=== PATIENT | female | born 1980 | race Caucasian/White ===

== ENCOUNTER 2018-08-05 17:26 | Emergency (ER) | payer OTHER ==
[2018-08-05] MEDS: ONDANSETRON 4 MG INJ IV (20:38)
[2018-08-05] MEDS: morphine 4 MG/ML VIAL IV (20:38)
[2018-08-05] MEDS: SOD CHLORIDE 0.9% 1,000 ML IV (20:39)
[2018-08-05 20:48] LABS: ADD UMIC YES; UR ASCORBIC ACID NEGATIVE (NEGATIVE); UR BACTERIA FEW /HPF (NONE SEEN); UR BILIRUBIN (Dip) NEGATIVE (NEGATIVE); UR BLOOD (Dip) NEGATIVE (NEGATIVE); UR CLARITY SLIGHTLY CLOUDY (CLEAR); UR COLOR YELLOW (YELLOW); UR GLUCOSE (Dip) NEGATIVE (NEGATIVE); UR KETONES (Dip) NEGATIVE (NEGATIVE); UR LEUKOCYTE ESTERASE (Dip) TRACE Leu/ul (NEGATIVE); UR NITRITE (Dip) NEGATIVE (NEGATIVE); UR RBC 6 /HPF (0-5); UR SPECIFIC GRAVITY (Dip) 1.009 (1.003-1.030); UR SQUAMOUS EPITHELIAL CELL FEW /HPF (FEW); UR TOTAL PROTEIN (Dip) NEGATIVE (NEGATIVE); UR UROBILINOGEN (Dip) NEGATIVE (NEGATIVE); UR WBC 2 /HPF (0-5)
[2018-08-05 20:53] LABS: ADD MAN DIFF? NO
[2018-08-05 20:54] LABS: WHITE BLOOD COUNT 9.3 10^3/ul (4.8-10.8)
[2018-08-05 20:54] LABS: BASOPHILS % 0.2 % (0.0-2.0); EOSINOPHILS # 0.1 10^3/ul (0.0-0.5); HEMATOCRIT 41.5 % (37.0-47.0); HEMOGLOBIN 14.3 g/dl (12.0-16.0); LYMPHOCYTES # 2.4 10^3/ul (0.8-2.9); LYMPHOCYTES % 25.6 % (15.0-51.0); MEAN CORPUSCULAR HEMOGLOBIN 30.8 pg (29.0-33.0); MEAN CORPUSCULAR HGB CONC 34.5 g/dl (32.0-37.0); MEAN CORPUSCULAR VOLUME 89.2 fl (82.0-101.0); MEAN PLATELET VOLUME 9.8 fl (7.4-10.4); MONOCYTE # 0.3 10^3/ul (0.3-0.9); MONOCYTES % 3.6 % (0.0-11.0); NEUTROPHIL # 6.5 10^3/ul (1.6-7.5); NEUTROPHILS % 69.4 % (39.0-77.0); PLATELET COUNT 341 10^3/UL (140-415); RED BLOOD COUNT 4.65 10^6/ul (4.20-5.40); RED CELL DISTRIBUTION WIDTH 11.9 % (11.5-14.5)
[2018-08-05 21:22] LABS: ALANINE AMINOTRANSFERASE 27 IU/L (13-69); ALBUMIN 4.4 g/dl (3.3-4.9); ALBUMIN/GLOBULIN RATIO 1.12; ALKALINE PHOSPHATASE 75 IU/L (42-121); ANION GAP 12 (8-16); ASPARTATE AMINO TRANSFERASE 28 IU/L (15-46); BILIRUBIN,INDIRECT 0.6 mg/dl (0-1.1); BILIRUBIN,TOTAL 0.6 mg/dl (0.2-1.3); BLOOD UREA NITROGEN 7 mg/dl (7-20); CALCIUM 9.5 mg/dl (8.4-10.2); CARBON DIOXIDE 27 mmol/L (21-31); CHLORIDE 106 mmol/L (97-110); CREATININE 0.77 mg/dl (0.44-1.00); GLUCOSE 140 mg/dl (70-220); LIPASE 54 U/L (23-300); POTASSIUM 3.6 mmol/L (3.5-5.1); SODIUM 141 mmol/L (135-144); TOTAL PROTEIN 8.3 g/dl (6.1-8.1)
== END 2018-08-06 02:53 | disposition home or self-care (01) ==
LOC: FTE 08-06 02:53
DX: D25.9 Leiomyoma of uterus, unspecified (principal); J45.909 Unspecified asthma, uncomplicated
CPT/HCPCS: 74176; 76830; 76856; 80053; 81001; 83690; 84703; 85025; 96374; 96375; 99285-25

== ENCOUNTER 2018-11-09 05:50 | Inpatient (IN) | payer OTHER ==
[2018-11-09] MEDS ORDERED: ALBUTEROL 0.083% (NEB) 2.5 MG/3 ML AMP HHN (06:56)
[2018-11-09] MEDS ORDERED: ALBUTEROL/IPRATROPIUM (NEB) 3 ML AMP HHN (07:01)
[2018-11-09] MEDS ORDERED: ALBUTEROL HFA 8 GM INHALER (07:09)
[2018-11-09] MEDS: ALBUTEROL HFA 8 GM INHALER INH (07:15)
[2018-11-09] MEDS ORDERED: ROCURONIUM 50 MG INJ (07:19)
[2018-11-09] MEDS ORDERED: FENTAnyl 50 MCG/ML VIAL ×2 (07:19)
[2018-11-09] MEDS ORDERED: MIDAZOLAM 1 MG/ML 2 ML INJ (07:19)
[2018-11-09] MEDS ORDERED: LIDOCAINE 2% (SDV) 5 ML INJ (07:19)
[2018-11-09] MEDS ORDERED: PROPOFOL 40 ML (07:19)
[2018-11-09] MEDS ORDERED: CEFAZOLIN 1 GM INJ (07:19)
[2018-11-09] MEDS ORDERED: DEXAMETHASONE 4 MG/ML 1 ML INJ (07:20)
[2018-11-09] MEDS ORDERED: FAMOTIDINE 20 MG INJ (07:20)
[2018-11-09] MEDS ORDERED: ONDANSETRON 4 MG INJ (07:20)
[2018-11-09] MEDS: METHYLENE BLUE 1% 10 ML INJ (07:28)
[2018-11-09] MEDS ORDERED: HYDROmorphONE 1 MG/5 ML IV SYRINGE IV (07:30)
[2018-11-09] MEDS ORDERED: EPHEDrine SULFATE 50 MG/5 ML SYG IV (07:30)
[2018-11-09] MEDS ORDERED: DIPHENHYDRAMINE 50 MG INJ IV (07:30)
[2018-11-09] MEDS ORDERED: FENTAnyl 50 MCG/ML VIAL IV ×2 (07:30)
[2018-11-09] MEDS ORDERED: LABETALOL HCL 20MG INJ IV (07:30)
[2018-11-09] MEDS ORDERED: ESMOLOL 10 ML (07:56)
[2018-11-09] MEDS ORDERED: SUGAMMADEX SODIUM 200 MG/2 ML VIAL IV (08:00)
[2018-11-09] MEDS: VASOPRESSIN 20 UNITS INJ (08:01)
[2018-11-09] MEDS ORDERED: PHENYLephrine (100 MCG/ML) 5ML SYG (08:12)
[2018-11-09] MEDS ORDERED: NALOXONE (0.4 MG/ML) INJ IV (09:30)
[2018-11-09] MEDS ORDERED: HYDROmorphONE 0.2 MG/ML PCA IV (09:30)
[2018-11-09] MEDS: MEPERIDINE 25 MG INJ IV (09:31)
[2018-11-09] MEDS: ONDANSETRON 4 MG INJ IV (09:33)
[2018-11-09] MEDS: HYDROmorphONE 1 MG/5 ML IV SYRINGE IV ×2 (09:34→10:11)
[2018-11-09] MEDS: ALBUTEROL 0.083% (NEB) 2.5 MG/3 ML AMP HHN (09:39)
[2018-11-09] MEDS: HYDROmorphONE 2 MG/ML SYG IV ×2 (14:32→19:22)
[2018-11-10] MEDS: HYDROmorphONE 2 MG/ML SYG IV ×4 (00:20→17:09)
[2018-11-10 05:09] LABS: ADD MAN DIFF? NO
[2018-11-10 05:20] LABS: WHITE BLOOD COUNT 18.4 10^3/ul (4.8-10.8)
[2018-11-10 05:20] LABS: BASOPHILS % 0.1 % (0.0-2.0); HEMATOCRIT 31.7 % (37.0-47.0); HEMOGLOBIN 10.9 g/dl (12.0-16.0); LYMPHOCYTES % 5.6 % (15.0-51.0); MEAN CORPUSCULAR HEMOGLOBIN 31.1 pg (29.0-33.0); MEAN CORPUSCULAR HGB CONC 34.4 g/dl (32.0-37.0); MEAN CORPUSCULAR VOLUME 90.6 fl (82.0-101.0); MEAN PLATELET VOLUME 9.8 fl (7.4-10.4); MONOCYTE # 1.1 10^3/ul (0.3-0.9); MONOCYTES % 5.9 % (0.0-11.0); NEUTROPHIL # 16.2 10^3/ul (1.6-7.5); NEUTROPHILS % 87.9 % (39.0-77.0); PLATELET COUNT 301 10^3/UL (140-415)
[2018-11-10 05:29] LABS: ALANINE AMINOTRANSFERASE 48 IU/L (13-69); ALBUMIN 3.3 g/dl (3.3-4.9); ALBUMIN/GLOBULIN RATIO 1.17; ALKALINE PHOSPHATASE 65 IU/L (42-121); ANION GAP 6 (5-13); ASPARTATE AMINO TRANSFERASE 45 IU/L (15-46); BILIRUBIN,INDIRECT 0.7 mg/dl (0-1.1); BILIRUBIN,TOTAL 0.7 mg/dl (0.2-1.3); BLOOD UREA NITROGEN 8 mg/dl (7-20); CALCIUM 8.3 mg/dl (8.4-10.2); CARBON DIOXIDE 27 mmol/L (21-31); CHLORIDE 105 mmol/L (97-110); CREATININE 0.58 mg/dl (0.44-1.00); Estimated GFR > 60 mL/min (>60); GLUCOSE 120 mg/dl (70-220); POTASSIUM 4.3 mmol/L (3.5-5.1); SODIUM 138 mmol/L (135-144); TOTAL PROTEIN 6.1 g/dl (6.1-8.1)
[2018-11-10] MEDS: MAGNESIUM HYDROXIDE 30ML CUP PO ×2 (06:14→17:00)
[2018-11-10] MEDS: BISACODYL 10 MG SUPP PR ×2 (06:14→17:00)
[2018-11-10] MEDS ORDERED: ONDANSETRON 4 MG INJ (08:25)
[2018-11-10] MEDS ORDERED: ONDANSETRON 4 MG INJ IV (08:30)
[2018-11-11] MEDS: IBUPROFEN 800 MG TAB PO ×3 (03:53→17:55)
[2018-11-11 14:56] LABS: ADD MAN DIFF? NO
[2018-11-11 14:59] LABS: WHITE BLOOD COUNT 10.4 10^3/ul (4.8-10.8)
[2018-11-11 14:59] LABS: BASOPHILS % 0.3 % (0.0-2.0); EOSINOPHILS # 0.1 10^3/ul (0.0-0.5); EOSINOPHILS % 1.2 % (0.0-7.0); HEMATOCRIT 32.4 % (37.0-47.0); HEMOGLOBIN 11.1 g/dl (12.0-16.0); LYMPHOCYTES # 2.6 10^3/ul (0.8-2.9); LYMPHOCYTES % 25.4 % (15.0-51.0); MEAN CORPUSCULAR HEMOGLOBIN 31.5 pg (29.0-33.0); MEAN CORPUSCULAR HGB CONC 34.3 g/dl (32.0-37.0); MEAN PLATELET VOLUME 9.2 fl (7.4-10.4); MONOCYTE # 0.9 10^3/ul (0.3-0.9); MONOCYTES % 8.6 % (0.0-11.0); NEUTROPHIL # 6.7 10^3/ul (1.6-7.5); NEUTROPHILS % 64.1 % (39.0-77.0); PLATELET COUNT 292 10^3/UL (140-415); RED BLOOD COUNT 3.52 10^6/ul (4.20-5.40); RED CELL DISTRIBUTION WIDTH 12.1 % (11.5-14.5)
== END 2018-11-11 20:10 | disposition home or self-care (01) | DRG 743 ==
LOC: SDS 05:50 → REC 08:59 → MS1 10:37
PROVIDERS: Obstetrics & Gynecology
PROC: 0UB90ZZ Excision of Uterus, Open Approach (ICD-10-PCS; principal; 2018-11-09 07:15)
PROC: 0UDB8ZZ Extraction of Endometrium, Via Natural or Artificial Opening Endoscopic (ICD-10-PCS; 2018-11-09 07:15)
PROC: 3E0P7KZ Introduction of Other Diagnostic Substance into Female Reproductive, Via Natural or Artificial Opening (ICD-10-PCS; 2018-11-09 07:15)
DX: D25.9 Leiomyoma of uterus, unspecified (principal); N92.0 Excessive and frequent menstruation with regular cycle; G89.29 Other chronic pain
CPT/HCPCS: 80053; 84702; 84703; 85025; 86850; 86900; 86901; 87086; 88305; 94664

== ENCOUNTER 2019-02-03 11:23 | Emergency (ER) | payer OTHER ==
[2019-02-03 12:57] LABS: ADD UMIC NO; UR ASCORBIC ACID NEGATIVE (NEGATIVE); UR BILIRUBIN (Dip) NEGATIVE (NEGATIVE); UR BLOOD (Dip) NEGATIVE (NEGATIVE); UR CLARITY CLEAR (CLEAR); UR COLOR STRAW (YELLOW); UR GLUCOSE (Dip) NEGATIVE (NEGATIVE); UR KETONES (Dip) NEGATIVE (NEGATIVE); UR LEUKOCYTE ESTERASE (Dip) NEGATIVE Leu/ul (NEGATIVE); UR NITRITE (Dip) NEGATIVE (NEGATIVE); UR SPECIFIC GRAVITY (Dip) 1.009 (1.003-1.030); UR TOTAL PROTEIN (Dip) NEGATIVE (NEGATIVE); UR UROBILINOGEN (Dip) NEGATIVE (NEGATIVE)
[2019-02-03] MEDS: KETOROLAC 60 MG INJ IM (12:57)
== END 2019-02-03 14:12 | disposition home or self-care (01) ==
LOC: FTE 11:23
DX: R10.2 Pelvic and perineal pain (principal); J45.909 Unspecified asthma, uncomplicated
CPT/HCPCS: 76830; 76856; 81003; 81025; 96372; 99285-25

== ENCOUNTER 2019-07-16 21:31 | Emergency (ER) | payer OTHER | END 2019-07-16 22:11 | disposition home or self-care (01) | LOC: E/R 22:11 | DX: T24.211A Burn of second degree of right thigh, initial encounter (principal); J45.909 Unspecified asthma, uncomplicated; X19.XXXA Contact with other heat and hot substances, initial encounter; Y92.9 Unspecified place or not applicable | CPT/HCPCS: 16000; 99282-25 ==